=== PATIENT | male | born 1960 | race Caucasian/White ===

== ENCOUNTER 2017-04-19 11:05 | Outpatient (CLI) | payer OTHER ==
[2017-04-19 11:40] LABS: #Eosinphils 0.1 thou/uL (0.0-0.7); #Lymphocytes 1.2 thou/uL (1.20-3.40); #Monocytes 0.3 thou/uL (0.11-0.59); #Neutrophils 2.5 thou/uL (1.40-6.50); %Basophils 1.2 % (0.0-1.0); %Eosinophils 2.8 % (0.0-10.0); %Lymphocytes 29.1 % (21.0-51.0); %Monocytes 6.7 % (0.0-10.0); %Neutrophils 60.2 % (42.0-75.0); Hemoglobin 15.7 g/dL (14.0-18.0); Mean Corpuscular Hemoglobin 30.8 pg (27.0-31.0); Mean Corpuscular Volume 90.5 fl (80.0-94.0); Mean Platelet Volume 7.2 fL (7.4-10.4); Platelet Count 236 thou/uL (130-400); RBC Distribution Width 11.8 % (11.5-14.5); Red Blood Cell (RBC) Count 5.09 mill/uL (4.70-6.10); White Blood Cell (WBC) Count 4.1 thou/uL (4.8-10.8)
[2017-04-19 12:06] LABS: Anion Gap 12 mmol/L (10-20); BUN (Urea Nitrogen) 12 mg/dL (8.4-25.7); Calc. Creatinine Clearance 0 mL/min (70-130); Calcium 9.6 mg/dL (7.8-10.44); Carbon Dioxide 27 mmol/L (22-29); Chloride 104 mmol/L (98-107); Estimated GFR-MDRD 83; Glucose 96 mg/dL (70-105); Potassium 4.4 mmol/L (3.5-5.1); Sodium 139 mmol/L (136-145)
== END 2017-04-19 11:06 | disposition home or self-care (01) ==
LOC: LABBT 11:05
PROVIDERS: ATTEND Surgery
DX: Z01.818 Encounter for other preprocedural examination (principal); K40.90 Unilateral inguinal hernia, without obstruction or gangrene, not specified as recurrent
CPT/HCPCS: 80048; 85025; 93005; 93010

== ENCOUNTER 2017-04-23 06:13 | Day surgery (SDC) | payer OTHER ==
[2017-04-19 11:39] VITALS: BMI 26.1
[2017-04-23] MEDS ORDERED: Bupivacaine/Epinephrine 0.25% 30 ML VIAL ONE (06:33)
[2017-04-23] MEDS ORDERED: Bupivacaine PF 0.5% 30 ML VIAL ONE (06:33)
[2017-04-23] MEDS ORDERED: Fentanyl 100 MCG/2 ML VIAL ONE (06:36)
[2017-04-23] MEDS ORDERED: Midazolam HCl 2 mg/2 ml Vial ONE (06:43)
[2017-04-23] MEDS ORDERED: CEFAZOLIN/Water 2 GM/20 ML SYRINGE ONE (06:44)
[2017-04-23] MEDS ORDERED: Ketorolac Tromethamine 30 MG/ML VIAL ONE (11:27)
[2017-04-23] MEDS ORDERED: Ondansetron HCl/PF 4 MG/2 ML Vial ONE (11:27)
[2017-04-23] MEDS ORDERED: Dexamethasone 20 MG/5 ML VIAL ONE (11:27)
[2017-04-23] MEDS ORDERED: Lidocaine 1% PF 5 ML VIAL ONE (11:27)
[2017-04-23] MEDS ORDERED: PROPOFOL 200 MG/20 ML VIAL ONE (11:27)
--- NOTE | 2017-04-24 14:36 | OP ---
DATE OF PROCEDURE: 04/23/2017 PREOPERATIVE DIAGNOSIS: Right inguinal hernia. POSTOPERATIVE DIAGNOSIS: Acute appendicitis. PROCEDURE: Right inguinal hernia repair with mesh, PHS extended. SURGEON: Luis Merchant M.D. ANESTHESIA: General. ESTIMATED BLOOD LOSS: Minimal. COMPLICATIONS: None. SPECIMEN: None. FINDINGS: Right inguinal hernia. TECHNIQUE: The patient was taken to the operating room and placed supine on the table. After genera l anesthetic was obtained, the bilateral groins and abdomen shaved, prepped and draped in a sterile f ashion. Oblique incision made above the pubic tubercle. Cautery dissected down through Pop's to expose the external oblique. External oblique fibers were opened along the course of the external ri ng. Contents of inguinal canal were resected from backside of the external oblique. Ilioinguinal ne rve was found and high removed to prevent postoperative pain. Cord structures were mobilized on the pubic tubercle using a Cris drain. Dissection superior medially on the cord showed there to be an indirect hernia sac. High ligation of the indirect hernia sac was performed. The stump inverted ba ck into the preperitoneal space. There was a direct defect. The preperitoneal space was opened thro ugh the direct and the preperitoneal space bluntly dissected using wet unraveled Ray-Elizabeth. PHS extend ed mesh brought into the sterile field. The underlay was placed in the preperitoneal space, its fibe rs laid out flat against the posterior abdominal wall. The overlay was laid in the floor of the ingu inal canal. The overlay was cut laterally to incorporate the internal ring. The overlay was sewn di stally to the pubic tubercle, medially to the transverse arch, laterally to the shelving edge of ingu inal ligament to fixate the mesh. The two ends of cut mesh were reapproximated at the shelving edge of inguinal ligament to reform the internal ring. The extricated mesh was tucked back under the exte rnal oblique proximally. The wound was irrigated. Local anesthetic was applied. Tunneled catheter for postop pain controlled through above the incision left on top of the mesh. External oblique and Pop's were closed using 3-0 Vicryl. Skin was closed using running 4-0 Monocryl and Dermabond. Th e patient was en route to recovery in stable condition. All instrument counts, needle counts, and la p counts were correct.
== END 2017-04-23 09:30 | disposition home or self-care (01) ==
LOC: SDC 06:13
PROVIDERS: ATTEND Surgery
PROC: 0YU50JZ Supplement Right Inguinal Region with Synthetic Substitute, Open Approach (ICD-10-PCS; principal; 2017-04-23)
DX: K40.90 Unilateral inguinal hernia, without obstruction or gangrene, not specified as recurrent (principal); Z98.52 Vasectomy status; Z98.890 Other specified postprocedural states; Z87.891 Personal history of nicotine dependence
CPT/HCPCS: A4306; C1781; J0131; J1100; J1885; J2001; J2250; J2405; J2704; J3010; S0020

== ENCOUNTER 2019-02-27 12:27 | Outpatient (CLI) | payer OTHER ==
--- NOTE | 2019-02-27 12:48 | RAD ---
Exam: Right foot 3 views: HISTORY: Follow-up fracture COMPARISON: 02/01/2019 FINDINGS: There is evidence for a healing mid shaft fracture of the second metatarsal with some minimal periost eal reaction with slightly more displacement when compared to the prior study. Nondisplaced healing fracture of the proximal third metatarsal. IMPRESSION: Evidence for healing fractures of the second and third metatarsals with very slightly more displaceme nt of the second mid shaft metatarsal fracture when compared to the prior exam.
== END 2019-02-27 12:28 | disposition home or self-care (01) ==
LOC: RAD 12:27
PROVIDERS: ATTEND Orthopaedic Surgery Hand Surgery
DX: S92.321D Displaced fracture of second metatarsal bone, right foot, subsequent encounter for fracture with routine healing (principal); S92.331D Displaced fracture of third metatarsal bone, right foot, subsequent encounter for fracture with routine healing

== ENCOUNTER 2019-10-15 14:47 | Outpatient (CLI) | payer OTHER ==
--- NOTE | 2019-10-15 15:08 | RAD ---
Chest 2 views HISTORY: Cough. COVID pneumonia. FINDINGS: Cardiac silhouette is unremarkable. Pulmonary vasculature upper limits of normal. Mediastinum is midline. There are patchy ill-defined areas of groundglass infiltrate throughout predominantly the periphery o f each lung. No lobar consolidation, pleural fluid, or pneumothorax are evident. There are degenerative changes of the shoulders. IMPRESSION : Multifocal peripheral patchy infiltrates, consistent with historically stated COVID pneumonitis.
== END 2019-10-15 14:48 | disposition home or self-care (01) ==
LOC: BICRAD 14:47
PROVIDERS: ATTEND Internal Medicine
DX: U07.1 COVID-19 (principal); R05 Cough; R91.8 Other nonspecific abnormal finding of lung field
CPT/HCPCS: 36415; 71046; 80048; 85025

== ENCOUNTER 2023-03-05 15:42 | Outpatient (CLI) | payer BC | END 2023-03-05 15:43 | disposition home or self-care (01) | LOC: RAD 15:42 | PROVIDERS: ATTEND Surgery | DX: R05.1 Acute cough (principal) | CPT/HCPCS: 71046 ==